=== PATIENT | female | born 1955 ===

== ENCOUNTER 2018-07-05 11:50 | Emergency (ER) | payer OTHER ==
[2018-07-05 12:01] VITALS: BP 145/88; PULSE 76; TEMP 97.6; O2SAT 97
--- NOTE | 2018-07-05 12:22 | C.PDOC ---
History Of Present Illness 62 y/o female presents to the ED for evaluation of right eye pain and right- sided headache for last 2 days. Patient is also c/o nasal congestion. Patient noted to have right-sided subconjunctival hemorrhage this morning. Patient denies eye trauma or photophobia at this time. Time Seen by Provider: 07/05/18 12:13 Chief Complaint (Nursing): High Blood Pressure History Per: Patient History/Exam Limitations: no limitations Onset/Duration Of Symptoms: Days (2) Current Symptoms Are (Timing): Still Present Associated Symptoms: Headache (right-sided ). denies: Other (photophobia ) Additional History Per: Patient Past Medical History Reviewed: Historical Data, Nursing Documentation, Vital Signs Vital Signs: Last Vital Signs Temp 97.6 F 07/05/18 11:57 Pulse 76 07/05/18 11:57 Resp 18 07/05/18 11:57 BP 145/88 07/05/18 11:57 Pulse Ox 97 07/05/18 11:57 - Medical History PMH: HTN Surgical History: No Surg Hx Family History: States: Unknown Family Hx - Social History Hx Alcohol Use: No Hx Substance Use: No Review Of Systems Eyes: Positive for: Pain (right) Neurological: Positive for: Headache (right-sided) Physical Exam - Physical Exam Appears: No Acute Distress Skin: Normal Color, Warm, Dry Head: Atraumatic, Normacephalic Eye(s): bilateral: PERRL, EOMI, right: Other (small area of subconjunctival hemorrhage to right eye, around 7-9 o'clock position that respects the iris), left: Normal Inspection Extremity: Normal ROM, Capillary Refill (less than 2 seconds ) Neurological/Psych: Oriented x3, Normal Speech, Normal Cognition ED Course And Treatment O2 Sat by Pulse Oximetry: 97 (on RA) Pulse Ox Interpretation: Normal Progress Note: EKG ordered and reviewed. Motrin PO and Sudafed PO given. Medical Decision Making Medical Decision Making: sinus headache R>L small R subconjunctival hemorrage no iritis does not invade iris. no vision change LOW susp of angle glaucoma Disposition Doctor Will See Patient In The: Office Counseled Patient/Family Regarding: Studies Performed, Diagnosis - Disposition Referrals: David Alvarez MD [Medical Doctor] - Disposition: HOME/ ROUTINE Disposition Time: 12:21 Condition: GOOD Additional Instructions: dolor de jennifer del sinus: ibuprofeno/advil 400-600 mg cada 6 horas lisette necessario Flonase espray 1 espray cada lado del nariz cada 12 horas Se baja inflammaci'n de las passages nasales. Sigue en la [facility] lisette necessario Instructions: Sinus Headache (DC), Subconjunctival Hemorrhage Forms: [employer] (Portuguese) Print Language: GREEK - Clinical Impression Clinical Impression: Subconjunctival hemorrhage of right eye, Sinus headache - Scribe Statement The provider has reviewed the documentation as recorded by the Scribe (Ashtyn Calvin) Provider Attestation: All medical record entries made by the Scribe were at my direction and personally dictated by me. I have reviewed the chart and agree that the record accurately reflects my personal performance of the history, physical exam, medical decision making, and the department course for this patient. I have also personally directed, reviewed, and agree with the discharge instructions and disposition.
[2018-07-05 12:32] VITALS: RESP 16
--- NOTE | 2018-07-07 13:33 | CARD ---
APPROVED REPORT Date of service: 07/05/2018 EKG Measurement Heart [id number] NM [id number] <Conclusion> Normal sinus rhythm Normal ECG
== END 2018-07-05 12:31 | disposition home or self-care (01) ==
LOC: C.ER 11:50
DX: H11.31 Conjunctival hemorrhage, right eye (principal); R51 Headache; I10 Essential (primary) hypertension